=== PATIENT | female | born 1945 | race Hispanic/Latino ===

== ENCOUNTER 2017-11-18 08:22 | Observation (INO) | payer MEDICARE ==
[2017-11-18] MEDS ORDERED: ECOTRIN PO ONE (09:08)
[2017-11-18 09:49] LABS: Basophils % (Auto) 0.8 % (0.0-1.8); Eosinophils # (Auto) 0.2 K/mm3 (0.0-0.4); Eosinophils % (Auto) 5.1 % (0.0-4.3); Hematocrit 36.7 % (30.3-42.9); Hemoglobin 12.3 gm/dl (10.1-14.3); Lymphocytes # (Auto) 1.5 K/mm3 (1.2-5.4); Lymphocytes % (Auto) 31.2 % (13.4-35.0); Mean Corpuscular HGB Conc 34 % (30-34); Mean Corpuscular Hemoglobin 31 pg (28-32); Mean Corpuscular Volume 94 fl (79-97); Monocytes # (Auto) 0.4 K/mm3 (0.0-0.8); Monocytes % (Auto) 8.3 % (0.0-7.3); Platelet Count 100 K/mm3 (140-440); Red Blood Count 3.91 M/mm3 (3.65-5.03); Red Cell Distribution Width 13.4 % (13.2-15.2)
[2017-11-18 09:58] LABS: INR 0.99 (0.87-1.13)
[2017-11-18 09:59] LABS: Partial Thromboplastin Time 34.4 Sec. (24.2-36.6)
[2017-11-18] MEDS ORDERED: NACL 0.9% 500 ML 500 ML IV SCH (10:00)
[2017-11-18 10:27] LABS: Calcium 9.8 mg/dL (8.4-10.2)
[2017-11-18] MEDS ORDERED: HEPARIN/NS 5000 UNIT/500ML(CATH LAB) 1,000 ML IR ONE (10:32)
[2017-11-18] MEDS ORDERED: CALAN ONE (10:33)
[2017-11-18] MEDS ORDERED: NITROGLYCERIN SYRINGE 3 ML ONE (10:33)
[2017-11-18] MEDS ORDERED: SUBLIMAZE ONE (10:33)
[2017-11-18] MEDS ORDERED: XYLOCAINE 2% INFILTRATI ONE ×2 (10:33→11:27)
[2017-11-18] MEDS ORDERED: VERSED ONE (10:33)
[2017-11-18] MEDS: HEPARIN 10,000 UNITS/10 ML ONE ×2 (11:09→11:16)
[2017-11-18] MEDS ORDERED: NITRO-BID 2% TP ONE (11:25)
[2017-11-18] MEDS ORDERED: HEPARIN/NS 5000 UNIT/500ML(CATH LAB) 500 ML IR ONE (11:34)
[2017-11-18] MEDS ORDERED: ALUM-MAG HYDROX-SIMETH 200-200-20MG/5ML ONE (11:40)
[2017-11-18] MEDS ORDERED: PLAVIX ONE (11:40)
[2017-11-18] MEDS ORDERED: ATROPINE 0.1% (CARDIAC) ONE (11:42)
[2017-11-18] MEDS ORDERED: D50W (25GM) Syringe IV PRN (12:39)
[2017-11-18] MEDS ORDERED: APRESOLINE IV ONE ×2 (12:40→13:18)
--- NOTE | 2017-11-18 13:37 | Cardiac Catherization Report ---
CARDIAC CATHETERIZATION REFERRING PHYSICIAN: Cecil Ornelas MD INDICATION FOR PROCEDURE: The patient is a pleasant 72-year-old female, multiple medical problems, history of CAD, PCI, who has continued to have chest pain, has lateral ischemia on stress test, referred for left heart catheterization. Risks, benefits, potential alternatives explained at length prior to obtaining informed consent. PROCEDURE IN DETAIL: The patient was brought to the catheterization lab in a postabsorptive state, prepped and draped in the usual fashion. Flo's test in right hand is normal. A 2 mL of 2% lidocaine used to anesthetize the right wrist. A standard 6-Bulgarian hydrophilic sheath used to cannulate the right radial artery via modified Seldinger technique. All exchanges were performed to exchange a J-tipped guidewire. JL3.5 catheter used to engage the left main. No dampening or ventricularization. Cineangiography performed in multiple projections. JR4 catheter used to cross the aortic valve under fluoroscopic guidance. Left ventriculography performed in 30 THURMAN and 30 MARION projections via hand injections, catheter flushed. Manual pullback performed with continuous pressure monitoring. Catheter used to engage the right coronary. No dampening or ventricularization. Cineangiography performed in all projections. JR4 catheter to cross the aortic valve under fluoroscopic guidance. Left ventriculography performed in 30 THURMAN and MARION projections via hand injections, catheter flushed. Manual pullback performed with continuous pressure monitoring. Cather used to engage the right coronary. No dampening or ventricularization. Cineangiography performed in all projections. DATA: Aortic pressure is 160/80, LV pressure is 160, LVEDP of 20 mmHg. Left ventriculography revealed normal systolic performance with estimated ejection fraction of 55-60%. No evidence of aortic stenosis. CORONARY ANATOMY: This is a right dominant system. Right coronary is a moderate sized vessel, courses AV groove, distally bifurcates in the posterior and posterolateral branch, no discrete stenosis identified. Left main is a long vessel with no significant disease, bifurcates left anterior descending and left circumflex. LAD is a moderate sized vessel, courses anterior intergroove, wraps around the apex, no significant disease in the LAD or diagonal system. Left circumflex is a moderate sized vessel, courses AV groove, gives off a true AV groove circ, which has a stent in the mid segment, which has a 95-99% stenosis proximal to this. The large OM trunk has a stent with 100% chronic total occlusion, extensive right to left collaterals identified. Given her symptoms with unstable angina despite optimal antianginal therapy lateral ischemia on stress test with 99% stenosis of the true left circumflex proximal to the preexisting stent we decided to proceed with PCI. Heparin given. Abnormal ACT confirmed. She has developed some brachial artery spasm. We did give nitroglycerin and nitro paste. This was unsuccessful. We changed to a groin approach, 8 mL of 2% lidocaine used to anesthetize the right groin. A standard 6-Bulgarian sheath was used to cannulate the right common femoral artery via modified Seldinger technique. All exchanges performed to exchange a J-tipped guidewire. We used an EBU 3.5 guide to engage the left main without difficulty. I used a Whisper extra support wire to cross the lesion without difficulty. We used a 2.0 x 12 balloon. This is a small vessel to predilate the lesion, I used a 2.25 x 18 Resolute drug-eluting stent. Intravascular ultrasound was then performed. Multiple passes were made. Excellent angiographic and ultrasonographic results. She does have borderline platelets at 100,000 and she is declining all blood products, but she does not have anemia at this point. No recent GI bleeding or no upcoming procedures, thus I chose a drug-eluting stent. Excellent final angiographic and ultrasonographic result. She is clinically stable. No chest pain. Standard groin radial care. I directly supervised the administration of moderate sedation with fentanyl and Versed from 11:00 a.m. to noon. There were no immediate complications. CONCLUSIONS: 1. Severe coronary artery disease, 99% stenosis of 2 mid left circumflex proximal to the preexisting stent. A successful IVUS guided PCI with placement of Resolute 2.25 x 18 drug-eluting stent with excellent final angiographic and ultrasonographic results. 2. Chronic total occlusion of OM1 stent with extensive right to left collaterals. Recommend medical management. 3. No significant disease in the right coronary, left main or LAD. 4. Normal left ventricular function, estimated ejection fraction of 55-60%. 5. High normal LVEDP. 6. Hypertension. At this point, recommend continued aggressive primary and secondary prevention measures. Aspirin, Plavix, statin therapy, standard groin radial care. The patient will be discharged tomorrow in stable condition any changes will be discharged tomorrow in stable condition. Follow up with Dr. Ornelas in the office. Results of procedure explained to the patient and family. All questions and concerns were addressed. JOB# [id number] SBM/NTS
--- NOTE | 2017-11-18 13:50 | Short Stay Summary ---
Short Stay Documentation Date of service: 11/18/17 - History H&P: obtained from office - Allergies and Medications Current Medications: Allergies promethazine [From Phenergan] Allergy (Verified 11/18/17 09:07) Anaphylaxis Home Medications Medication Instructions Recorded Confirmed Last Taken Type Donepezil HCl 10 mg PO DAILY 11/18/17 11/18/17 11/17/17 History 10mg Escitalopram [Lexapro] 10 mg PO DAILY 11/18/17 11/18/17 11/17/17 History 10mg Hydralazine HCl 50 mg PO DAILY 11/18/17 11/18/17 11/17/17 History 50mg Insulin Glargine,Hum.rec.anlog 30 units SC DAILY 11/18/17 11/18/17 11/17/17 History [Lantus Solostar] 30units Magnesium 400 mg PO DAILY 11/18/17 11/18/17 11/17/17 History 400mg Metoprolol [Lopressor TAB] 25 mg PO DAILY 11/18/17 11/18/17 11/17/17 History 25mg Rosuvastatin Calcium 20 mg PO QHS 11/18/17 11/18/17 11/17/17 History 20mg Active Medications Aspirin (Aspirin) 325 mg PO QDAY [facility] Atorvastatin Calcium (Lipitor) 40 mg PO QHS [facility] Clopidogrel Bisulfate (Plavix) 75 mg PO QDAY [facility] Dextrose (D50w (25gm) Syringe) 50 ml IV PRN PRN PRN Reason: Hypoglycemia Sodium Chloride (Nacl 0.9% 500 Ml) 500 mls @ 50 mls/hr IV DIRECT [facility] Stop: 11/18/17 19:59 Last Admin: 11/18/17 09:43 Dose: 50 mls/hr Insulin Human Lispro (Humalog) 0 unit SUB-Q ACHS [facility]; Protocol Losartan Potassium (Cozaar) 50 mg PO QDAY [facility] Metoprolol Tartrate (Lopressor) 25 mg PO BID [facility] - Physical exam General appearance: no acute distress HEENT: Atraumatic, PERRLA, EOMI Lungs: Clear to auscultation Heart: Regular rate, Normal S1, Normal S2 Gastrointestinal: normal, normoactive bowel sounds, hypoactive bowel sounds Extremities: no ischemia, pulses intact, pulses symmetrical, No edema, normal temperature, normal color Neurological: Normal gait, Normal speech, Strength at 5/5 X4 ext - Brief post op/procedure progress note Date of procedure: 11/18/17 Pre-op diagnosis: abnormal stress test; CAD Post-op diagnosis: other (CAD) Procedure: LHC with PCI - see dictated cath report Anesthesia: local Estimated blood loss: none Condition: stable - Hospital course Hospital course: Pt presented for scheduled LHC and subsequently underwent PCI of left circ. She remained clinically and hemodynamically stable throughout her procedure and recovery. She was admitted for observation overnight and is now medically stable for discharge home. - Disposition Condition at discharge: Stable Disposition: [id number] TO HOME OR SELFCARE - Discharge Diagnoses (1) CAD (coronary artery disease) Status: Chronic (2) Stented coronary artery Status: Chronic (3) HTN (hypertension) Status: Chronic (4) Diabetes Status: Chronic Short Stay Discharge Plan Activity: advance as tolerated Diet: low fat, low cholesterol, low salt Wound: open to air, keep clean and dry, per your surgeon's advice Follow up with: KELY CHAMBERS MD [Primary Care Provider] - 7 Days IKER MELGAR MD [Staff Physician] - 7 Days ([place] office, 12/08/2017 @ 1: 45PM) Prescriptions: Aspirin [Aspirin TAB] 325 mg PO QDAY #30 tablet Clopidogrel [Plavix] 75 mg PO QDAY #30 tablet
[2017-11-18] MEDS ORDERED: TYLENOL PO PRN (14:06)
[2017-11-18] MEDS ORDERED: ZOFRAN IV PRN (14:06)
[2017-11-18] MEDS ORDERED: TYLENOL #3 PO PRN (17:44)
[2017-11-18] MEDS: LOPRESSOR PO SCH (23:12)
[2017-11-19 04:37] LABS: Basophils % (Auto) 0.7 % (0.0-1.8); Eosinophils # (Auto) 0.1 K/mm3 (0.0-0.4); Eosinophils % (Auto) 1.2 % (0.0-4.3); Hematocrit 31.3 % (30.3-42.9); Hemoglobin 10.7 gm/dl (10.1-14.3); Lymphocytes # (Auto) 1.4 K/mm3 (1.2-5.4); Lymphocytes % (Auto) 28.6 % (13.4-35.0); Mean Corpuscular HGB Conc 34 % (30-34); Mean Corpuscular Hemoglobin 32 pg (28-32); Mean Corpuscular Volume 94 fl (79-97); Monocytes # (Auto) 0.4 K/mm3 (0.0-0.8); Monocytes % (Auto) 8.6 % (0.0-7.3); Red Blood Count 3.31 M/mm3 (3.65-5.03); Red Cell Distribution Width 13.5 % (13.2-15.2)
[2017-11-19 04:58] LABS: Platelet Count 98 K/mm3 (140-440)
[2017-11-19 05:00] LABS: Calcium 9.2 mg/dL (8.4-10.2); Creatine Kinase MB 4.6 ng/mL (0.0-4.0)
[2017-11-19 05:43] LABS: Chol/HDL Ratio 1.98 %
[2017-11-19] MEDS: HumaLOG SUB-Q SCH ×2 (07:52→09:51)
[2017-11-19] MEDS: LOPRESSOR PO SCH (09:16)
[2017-11-19] MEDS: COZAAR PO SCH ×2 (09:27→09:53)
--- NOTE | 2017-11-19 09:40 | XRay Report ---
AP CHEST : 11/19/17 CLINICAL: Status post PCI COMPARISON:None FINDINGS: Mild cardiomegaly.Normal pulmonary vessels. The lungs are normally expanded and clear. No pneumothorax. No tubes or lines. The bones and soft tissues are unremarkable. IMPRESSION: Mild cardiomegaly but no CHF.
[2017-11-19] MEDS ORDERED: PLAVIX PO SCH (10:00)
[2017-11-19] MEDS ORDERED: ASPIRIN PO SCH (10:00)
--- NOTE | 2017-11-19 11:38 | Event Note ---
Date: 11/19/17 pt is doing well this am. feels better no cp/sob mild right groin hematoma - no bruit or sig pain rra site looks good pt ambulating w/o sxs mild anemia and thrombocytopenia - stable f/u w Dr. Ornelas next week check cbc early next week
[2017-11-19 12:37] VITALS: BP 143/61
== END 2017-11-19 13:26 | disposition home or self-care (01) ==
LOC: CATHLABREC 08:22 → 4A 12:32
PROVIDERS: ADMIT Internal Medicine; ATTEND Internal Medicine
DX: I25.10 Atherosclerotic heart disease of native coronary artery without angina pectoris (principal); I10 Essential (primary) hypertension; E11.9 Type 2 diabetes mellitus without complications
CPT/HCPCS: 36415; 71045; 80048; 80061; 82550; 82553; 82962; 83735; 84484; 85025; 85347; 85610; 85730; 92978; 93005; 93010; 93458; 96372; 96374; A9270; C1725; C1753; C1769; C1874; C1887; C1894; C9600; G0378; J0360; J1644; J2250; J3010; J7040; 92928; J0461; J1815; Q9967

== ENCOUNTER 2017-12-22 13:37 | Outpatient (CLI) | payer MEDICARE ==
--- NOTE | 2017-12-22 18:01 | Cat Scan Report ---
FINAL REPORT PROCEDURE: CT ABDOMEN WO CON TECHNIQUE: Computerized axial tomography of the abdomen was performed without intravenous contrast. Reconstructed coronal and sagittal images were obtained of the abdomen and pelvis. Axial images include the abdomen only. This study is performed without intravascular contrast material and its sensitivity for abdominal and pelvic pathology, including neoplasms, inflammation, abscess, free fluid, thrombosis, arterial dissection and infarction, is reduced compared with a contrast enhanced study. HISTORY: LEFT UPPER QUADRANT PAIN COMPARISON: No prior studies are available for comparison. FINDINGS: Visualized lower thorax: No significant abnormality. Liver: Nodular liver contour can be seen with intrinsic hepatic disease. Liver measures 16 centimeters craniocaudal. Spleen: Normal size and attenuation. Gallbladder and biliary system: There has been cholecystectomy. Pancreas: Normal. Adrenals: Normal. Kidneys: Punctate nonobstructing calculus in the midpole of the left kidney. 18 millimeter low-density mass cyst in the left kidney upper pole. No hydronephrosis or ureteral calculi are identified GI tract: Normal . Lymph nodes and mesentery: Normal. Vasculature: Atherosclerotic calcification. Peritoneum: No free fluid. Musculoskeletal structures: There are multilevel degenerative disc and facet arthritic changes of the thoracic and lumbar spine. Other: Uterus is absent. IMPRESSION: Nodular liver contour can be seen with intrinsic hepatic disease. Correlate clinically. Punctate 1-2 millimeter nonobstructing calculus in the midpole the left kidney. No hydronephrosis or ureteral calculi are identified
== END 2017-12-22 13:38 | disposition home or self-care (01) ==
LOC: CT 13:37
PROVIDERS: ATTEND Internal Medicine Cardiovascular Disease
DX: K76.89 Other specified diseases of liver (principal); M47.895 Other spondylosis, thoracolumbar region; I10 Essential (primary) hypertension; E11.9 Type 2 diabetes mellitus without complications; E78.00 Pure hypercholesterolemia, unspecified; M19.90 Unspecified osteoarthritis, unspecified site; F32.9 Major depressive disorder, single episode, unspecified; F41.9 Anxiety disorder, unspecified; Z87.891 Personal history of nicotine dependence; Z88.6 Allergy status to analgesic agent
CPT/HCPCS: 74150